=== PATIENT | male | born 1945 | race Caucasian/White ===

== ENCOUNTER → 2018-12-02 | Outpatient (REF) | payer MEDICARE | LOC: M SFHCLERA 12:41 | PROVIDERS: ATTEND Physician Assistant | DX: J02.9 Acute pharyngitis, unspecified (principal) ==

== ENCOUNTER → 2019-03-31 | Outpatient (REF) | payer MEDICARE ==
[2019-03-31 19:51] LABS: AMORPHOUS SEDIMENT LARGE (NEGATIVE); APPEARANCE, URINE TURBID (CLEAR); BACTERIA, URINE AUTO 1+ (NEGATIVE); BILIRUBIN, URINE AUTO NEGATIVE (NEGATIVE); BLOOD, URINE BLOOD NEGATIVE (NEGATIVE); COLOR, URINE YELLOW (YELLOW); GLUCOSE, URINE (UA) AUTO NEGATIVE (NEGATIVE); KETONE, URINE AUTO TRACE mg/dL (NEGATIVE); LEUKOCYTE ESTERASE, URINE AUTO TRACE (NEGATIVE); NITRITE, URINE AUTO NEGATIVE (NEGATIVE); PROTEIN, URINE AUTO NEGATIVE (NEGATIVE); RBC, URINE AUTO 0 /HPF (0-3); SPECIFIC GRAVITY URINE AUTO 1.026 (1.002-1.035); SQUAMOUS EPITHELIAL CELL UR AU 0 /HPF (0-6); WBC, URINE AUTO 5 /HPF (0-3)
== END ==
LOC: M SMT 18:46
PROVIDERS: ATTEND Nurse Practitioner Family
DX: N39.41 Urge incontinence (principal); R97.20 Elevated prostate specific antigen [PSA]
CPT/HCPCS: 36415; 51798; 81001; 87086; G0103; G0463

== ENCOUNTER → 2019-03-31 | Outpatient (CLI) | payer MEDICARE | LOC: M SMT 13:38 | PROVIDERS: ATTEND Nurse Practitioner Family | DX: R97.20 Elevated prostate specific antigen [PSA] (principal) | CPT/HCPCS: 36415; G0103 ==

== ENCOUNTER → 2019-06-16 | Outpatient (CLI) | payer MEDICARE ==
--- NOTE | 2019-06-16 11:25 | REP ---
Clinical: Chronic pain. Technique: Single AP view of the pelvis. Findings: Osseous structures, joint spaces, and surrounding soft tissues are relatively normal for age. No acute fracture dislocation. No significant overt osteoarthritic degenerative changes. Impression: Age-appropriate pelvic radiograph. Electronically Signed by Owen Lainez MD 06/16/2019 11:17 A
--- NOTE | 2019-06-16 11:27 | REP ---
Clinical: Chronic lower back pain. Technique: AP, lateral, bilateral oblique and coned-down views of the lumbosacral spine. Findings: Alignment and lordosis maintained. Vertebral bodies are intact. No acute fracture / compression injury or subluxation. Endplate sclerosis with minimal disc space narrowing and spurring noted at L5-S1, L4-5, and T11-12. Impression: Relatively age-related degenerative changes. No acute fracture / compression injury or subluxation. Electronically Signed by Owen Lainez MD 06/16/2019 11:18 A
== END ==
LOC: M RAD 10:36
PROVIDERS: ATTEND Chiropractor
DX: M51.36 Other intervertebral disc degeneration, lumbar region (principal); M25.78 Osteophyte, vertebrae

== ENCOUNTER 2020-01-26 08:54 | Emergency (ER) | payer MEDICARE ==
[~2020-01-26] VITALS: Ht 177.8 cm; Wt 82.9 kg
[2020-01-26] MEDS ORDERED: ATOR1TAB19 (09:15)
[2020-01-26] MEDS ORDERED: FINA5TAB2 (09:15)
[2020-01-26] MEDS ORDERED: OMEP-218 (09:15)
[2020-01-26 09:39] LABS: BASO % 0.4 % (0.0-1.0); EOS # 0.4 10^3/uL (0.0-0.5); EOS % 5.3 % (0.0-3.0); HEMATOCRIT 43.6 % (42.0-52.0); HEMOGLOBIN 14.9 g/dl (13.5-17.5); LYMPH # 1.5 10^3/uL (1.5-5.0); LYMPH % 19.9 % (24.0-44.0); MEAN CORPUSCULAR HGB CONC 34.2 g/dl (32.0-36.5); MEAN CORPUSCULAR VOLUME 99.5 fl (80.0-96.0); MONO # 0.5 10^3/uL (0.0-0.8); MONO % 6.9 % (0.0-5.0); NEUTROPHILS # 5.1 10^3/uL (1.5-8.5); NEUTROPHILS % 67.2 % (36.0-66.0); PLATELET COUNT, AUTOMATED 161 10^3/uL (150-450); RED BLOOD COUNT 4.38 10^6/uL (4.30-6.10); WHITE BLOOD COUNT 7.6 10^3/uL (4.0-10.0)
[2020-01-26 09:50] LABS: INR 1.09; PROTHROMBIN TIME 13.8 SECONDS (11.8-14.0)
[2020-01-26 09:51] LABS: PARTIAL THROMBOPLASTIN TIME 26.7 SECONDS (25.0-38.4)
[2020-01-26] MEDS ORDERED: ISOVUE-370 76% 100ML VIAL As Ordered ONE (10:08)
[2020-01-26 10:17] LABS: ALBUMIN 3.8 GM/DL (3.2-5.2); ALT/SGPT 30 U/L (12-78); BILIRUBIN,DIRECT 0.3 MG/DL (0.0-0.2); BILIRUBIN,TOTAL 0.8 MG/DL (0.2-1.0); BLOOD UREA NITROGEN 21 MG/DL (7-18); CALCIUM LEVEL 8.8 MG/DL (8.8-10.2); CARBON DIOXIDE LEVEL 27 MEQ/L (21-32); CHLORIDE LEVEL 109 MEQ/L (98-107); CK-MB VALUE MASS 1.3 NG/ML (<3.6); CPK CREATINE PHOSPHOKINASE 65 U/L (39-308); CREATININE FOR GFR 0.93 MG/DL (0.70-1.30); FREE T4 1.12 NG/DL (0.76-1.46); GLOMERULAR FILTRATION RATE > 60.0 (>42); GLUCOSE, FASTING 113 MG/DL (70-100); LIPASE 117 U/L (73-393); POTASSIUM SERUM 4.1 MEQ/L (3.5-5.1); SODIUM LEVEL 143 MEQ/L (136-145); TOTAL PROTEIN 7.6 GM/DL (6.4-8.2); TROPONIN I < 0.02 NG/ML (< 0.10)
[2020-01-26 11:01] VITALS: BP 149/79
--- NOTE | 2020-01-26 11:01 | REP ---
CHEST, SINGLE VIEW: There is no evidence of acute infiltrate. No pleural effusion is seen. The heart is normal in size. The mediastinal silhouette is unremarkable. The visualized osseous structures are intact. IMPRESSION: No acute pulmonary disease. Electronically Signed by Timothy Guerin MD 01/26/2020 11:29 A
[2020-01-26] MEDS ORDERED: KETO10TAB PO (11:12)
--- NOTE | 2020-01-26 12:32 | REP ---
CT ANGIOGRAM CHEST: TECHNIQUE: Axial contrast-enhanced images from the thoracic inlet to the upper abdomen using 100 mL Isovue-370 intravenous contrast material with multiplanar reformations. There is no evidence of thoracic aortic aneurysm or dissection. There is mild atherosclerotic calcification. There is no evidence of pulmonary embolism. Heart is normal in size. There is no mediastinal, hilar or chest wall lymphadenopathy. There is no pleural or pericardial effusion. The lungs are free of infiltrate or suspicious nodular opacity. There are degenerative changes of the spine. IMPRESSION: No evidence of aneurysm or dissection of the thoracic aorta. Electronically Signed by Timothy Guerin MD 01/26/2020 03:31 P
--- NOTE | 2020-01-26 12:43 | REP ---
CT ABDOMEN AND PELVIS WITH IV CONTRAST: A 7 mm hypodense nodule is seen in the left lobe of the liver probably representing a small cyst or hemangioma. Gallbladder is grossly unremarkable with no evidence of biliary dilatation. The spleen is normal in size. Adrenal glands are normal. Pancreas demonstrates no mass. There is a small hypodense nodule in the lower pole of the right kidney likely representing a small cyst. Three hypodensities in the left kidney also likely represent cysts. The largest is in the upper pole 2.4 cm in diameter. There is no hydronephrosis bilaterally. There is a fusiform aneurysmal dilatation of the distal abdominal aorta below the level of the renal arteries containing a moderate amount of intraluminal plaque/thrombus. Maximum AP diameter is 3.9 cm. There is no evidence of dissection or rupture. There is no adenopathy. There is no free air or free fluid. There is no bowel wall thickening. There is mild sigmoid diverticulosis without evidence of acute diverticulitis. There are several diverticula also seen of the left colon. The prostate is enlarged. Urinary bladder is mildly distended and grossly unremarkable. There are degenerative changes of the spine. IMPRESSION: Fusiform aneurysm distal abdominal aorta maximum AP diameter of 3.9 cm. No evidence of dissection or rupture. Electronically Signed by Timothy Guerin MD 01/26/2020 03:31 P
--- NOTE | 2020-01-27 07:59 | ECGEPIP ---
[facility] - ED Test Date: 2020-01-26 Pat Name: GLEN GUEVARA Department: Room: - Gender: Male [employer] Supervisor: MELISSA : 1945 Requested By: LILI Delgado Order Number: [id number] Reading MD: Eran Cottrell Measurements Intervals [place] Rate: 65 P: 87 MT: 184 QRS: -54 QRSD: 140 T: 82 QT: 454 QTc: 473 Interpretive Statements SINUS RHYTHM RIGHT BUNDLE BRANCH BLOCK LEFT ANTERIOR FASCICULAR BLOCK PROBABLE SEPTAL MYOCARDIAL INFARCTION, OF INDETERMINATE AGE NO PRIORS FOR COMPARISON Electronically Signed on 01-27-2020 7:58:46 EDT by Eran Cottrell
== END 2020-01-26 11:39 | disposition home or self-care (01) ==
LOC: M ED 08:54
DX: R07.9 Chest pain, unspecified (principal); I45.10 Unspecified right bundle-branch block; I71.4 Abdominal aortic aneurysm, without rupture; E78.5 Hyperlipidemia, unspecified; K22.70 Barrett's esophagus without dysplasia; K21.9 Gastro-esophageal reflux disease without esophagitis; Z79.899 Other long term (current) drug therapy; Z87.891 Personal history of nicotine dependence
CPT/HCPCS: 71045; 71275; 74174; 80047; 80048; 80076; 82550; 82553; 83690; 84439; 84443; 84484; 85025; 85610; 85730; 93005; 93041; 94760; 99285; Q9967

== ENCOUNTER → 2020-02-09 | Outpatient (CLI) | payer MEDICARE ==
[~2020-02-09] MED LIST: ASPI1CHW3 PO; ATOR1TAB19; FINA5TAB2; KETO10TAB PO; OMEP-218
--- NOTE | 2020-02-09 08:59 | REP ---
Clinical: Follow-up abdominal aortic aneurysm. Technique: Real time laura scale ultrasound examination using curved array transducer. Correlation: CT dated 01/26/2020 Findings: Moderate to significant atherosclerotic disease noted. Infrarenal abdominal aortic aneurysm measures approximately 4.4 x 4.8 cm diameter and 6 cm in craniocaudal length originating 4 cm below the level of the renal arteries and tapering to normal above the bifurcation to iliac arteries. Proximal aorta 2.6 x 3.0 cm. Mid aorta (renal artery level) 2.4 x 2.2 cm. Mid aorta 2.8 x 2.7 cm. Distal aorta 4.4 x 4.8 cm. Right common iliac artery 1.0 cm maximal diameter. Left common iliac artery 0.9 cm maximal diameter. Impression: 1. Moderate infrarenal abdominal aortic aneurysm measuring 4.8 cm maximal diameter. Associated atherosclerotic disease noted. Electronically Signed by Owen Lainez MD 02/09/2020 08:50 A
== END ==
LOC: M RAD 06:56
PROVIDERS: ATTEND Nurse Practitioner Family
DX: I71.4 Abdominal aortic aneurysm, without rupture (principal)

== ENCOUNTER → 2020-04-08 | Outpatient (CLI) | payer MEDICARE | LOC: M LABSMTC 11:02 | PROVIDERS: ATTEND Anesthesiology | DX: Z01.812 Encounter for preprocedural laboratory examination (principal); Z20.828 Contact with and (suspected) exposure to other viral communicable diseases | CPT/HCPCS: C9803; U0003 ==

== ENCOUNTER 2020-04-13 08:07 | Day surgery (SDC) | payer MEDICARE ==
[~2020-04-13] VITALS: Ht 177.8 cm; Wt 80.3 kg
[~2020-04-13 08:07] MED LIST changes: +NS 1,000 ML IV ONE
[2020-04-13] MEDS ORDERED: LIDOCAINE 2% 100MG/5ML SDV (FOR ANES.) As Ordered ONE (09:29)
[2020-04-13] MEDS ORDERED: propofoL 200 MG/20 ML VIAL As Ordered ONE ×2 (09:29→09:58)
--- NOTE | 2020-04-13 10:22 | ROOR ---
Patient Name: Terrance Louise Procedure Date: 04/13/2020 9:25 AM Date of : 1945 Age: 74 Room: [facility] Gender: Male Note Status: Finalized Procedure: Upper GI endoscopy Indications: Follow-up of Sorto's esophagus Providers: Alex Richard MD Referring MD: Brendan PINEDA MD Requesting Provider: Medicines: Monitored Anesthesia Care Complications: No immediate complications. Procedure: Pre-Anesthesia Assessment: - Prior to the procedure, a History and Physical was performed, and patient medications and allergies were reviewed. The patient is competent. The risks and benefits of the procedure and the sedation options and risks were discussed with the patient. All questions were answered and informed consent was obtained. Patient identification and proposed procedure were verified by the physician, the nurse and the anesthesiologist in the procedure room. Mental Status Examination: alert and oriented. Airway Examination: normal oropharyngeal airway and neck mobility. Respiratory Examination: clear to auscultation. CV Examination: normal. Prophylactic Antibiotics: The patient does not require prophylactic antibiotics. Prior Anticoagulants: The patient has taken no previous anticoagulant or antiplatelet agents. ASA Grade Assessment: III - A patient with severe systemic disease. After reviewing the risks and benefits, the patient was deemed in satisfactory condition to undergo the procedure. The anesthesia plan was to use monitored anesthesia care (MAC). Immediately prior to administration of medications, the patient was re-assessed for adequacy to receive sedatives. The heart rate, respiratory rate, oxygen saturations, blood pressure, adequacy of pulmonary ventilation, and response to care were monitored throughout the procedure. The physical status of the patient was re-assessed after the procedure. The Endoscope was introduced through the mouth, and advanced to the second part of duodenum. The upper GI endoscopy was accomplished without difficulty. The patient tolerated the procedure well. Findings: Two tongues of salmon-colored mucosa were present from 42 to 44 cm. No other visible abnormalities were present. The maximum longitudinal extent of these esophageal mucosal changes was 2 cm in length. Biopsies were taken with a cold forceps for histology. Verification of patient identification for the specimen was done by the physician and nurse using the patient's name, date and medical record number. The Z-line was found 44 cm from the incisors. Scattered moderate inflammation characterized by erythema, friability and granularity was found in the stomach. Biopsies were taken with a cold forceps for Helicobacter pylori testing. No gross lesions were noted in the duodenal bulb, in the second portion of the duodenum and in the area of the papilla. Impression: - [place]-colored mucosa suggestive of short-segment Sorto's esophagus. Biopsied. - Z-line, 44 cm from the incisors. - Gastritis. Biopsied. - No gross lesions in the duodenal bulb, in the second portion of the duodenum and in the area of the papilla. Recommendation: - Patient has a contact number available for emergencies. The signs and symptoms of potential delayed complications were discussed with the patient. Return to normal activities tomorrow. Written discharge instructions were provided to the patient. - High fiber diet. - Continue present medications. - Await pathology results. - Follow an antireflux regimen. - Repeat upper endoscopy in 3 years for surveillance of Sorto's esophagus. - Telephone GI clinic for pathology results in 2 weeks. - Return to primary care physician. Alex Richard MD Alex Richard MD 04/13/2020 10:21:51 AM Electronically signed by Alex Richard MD Number of Addenda: 0 Note Initiated On: 04/13/2020 9:25 AM Estimated Blood Loss: Estimated blood loss was minimal.
[2020-04-13 10:35] VITALS: BP 112/55
--- NOTE | 2020-04-13 10:38 | ROOR ---
Patient Name: Terrance Louise Procedure Date: 04/13/2020 9:26 AM Date of : 1945 Age: 74 Room: [facility] Gender: Male Note Status: Finalized Procedure: Colonoscopy Indications: High risk colon cancer surveillance: Personal history of colonic polyps Providers: Alex Richard MD Referring MD: Brendan PINEDA MD Requesting Provider: Medicines: Monitored Anesthesia Care Complications: No immediate complications. Procedure: Pre-Anesthesia Assessment: - Prior to the procedure, a History and Physical was performed, and patient medications and allergies were reviewed. The patient is competent. The risks and benefits of the procedure and the sedation options and risks were discussed with the patient. All questions were answered and informed consent was obtained. Patient identification and proposed procedure were verified by the physician, the nurse and the anesthesiologist in the procedure room. Mental Status Examination: alert and oriented. Airway Examination: normal oropharyngeal airway and neck mobility. Respiratory Examination: clear to auscultation. CV Examination: normal. Prophylactic Antibiotics: The patient does not require prophylactic antibiotics. Prior Anticoagulants: The patient has taken no previous anticoagulant or antiplatelet agents. ASA Grade Assessment: II - A patient with mild systemic disease. After reviewing the risks and benefits, the patient was deemed in satisfactory condition to undergo the procedure. The anesthesia plan was to use monitored anesthesia care (MAC). Immediately prior to administration of medications, the patient was re-assessed for adequacy to receive sedatives. The heart rate, respiratory rate, oxygen saturations, blood pressure, adequacy of pulmonary ventilation, and response to care were monitored throughout the procedure. The physical status of the patient was re-assessed after the procedure. The Colonoscope was introduced through the anus and advanced to the terminal ileum, with identification of the appendiceal orifice and IC valve. The colonoscopy was performed without difficulty. The patient tolerated the procedure well. The quality of the bowel preparation was good. The terminal ileum, ileocecal valve, appendiceal orifice, and rectum were photographed. Scope insertion time was 3 minutes. Scope withdrawal time was 9 minutes. The total duration of the procedure was 12 minutes. Findings: The perianal and digital rectal examinations were normal. The terminal ileum appeared normal. Two sessile polyps were found in the transverse colon and ascending colon. The polyps were 6 to 8 mm in size. These polyps were removed with a cold snare. Resection and retrieval were complete. Verification of patient identification for the specimen was done by the physician and nurse using the patient's name, date and medical record number. Estimated blood loss was minimal. Multiple medium-mouthed diverticula were found in the sigmoid colon and ascending colon. There was no evidence of diverticular bleeding. Non-bleeding external and internal hemorrhoids were found during retroflexion. The hemorrhoids were medium-sized. Impression: - The examined portion of the ileum was normal. - Two 6 to 8 mm polyps in the transverse colon and in the ascending colon, removed with a cold snare. Resected and retrieved. - Moderate diverticulosis in the sigmoid colon and in the ascending colon. There was no evidence of diverticular bleeding. - Non-bleeding external and internal hemorrhoids. Recommendation: - Patient has a contact number available for emergencies. The signs and symptoms of potential delayed complications were discussed with the patient. Return to normal activities tomorrow. Written discharge instructions were provided to the patient. - High fiber diet. - Continue present medications. - Use fiber, for example Citrucel, Fibercon, Konsyl or Metamucil. - Await pathology results. - Repeat colonoscopy in 5 years for surveillance based on pathology results. - Telephone GI clinic for pathology results in 2 weeks. - Return to primary care physician. Alex Richard MD Alex Richard MD 04/13/2020 10:38:10 AM Electronically signed by Alex Richard MD Number of Addenda: 0 Note Initiated On: 04/13/2020 9:26 AM Estimated Blood Loss: Estimated blood loss was minimal.
== END 2020-04-13 10:53 | disposition home or self-care (01) ==
LOC: M OPP 08:07
PROVIDERS: ATTEND Internal Medicine Gastroenterology
DX: Z12.11 Encounter for screening for malignant neoplasm of colon (principal); Z86.010 Personal history of colon polyps; D12.6 Benign neoplasm of colon, unspecified; K57.30 Diverticulosis of large intestine without perforation or abscess without bleeding; K64.8 Other hemorrhoids; K22.70 Barrett's esophagus without dysplasia; K29.70 Gastritis, unspecified, without bleeding; Z79.82 Long term (current) use of aspirin; Z79.899 Other long term (current) drug therapy; I10 Essential (primary) hypertension

== ENCOUNTER → 2020-08-31 | Outpatient (CLI) | payer MEDICARE ==
[~2020-08-31] MED LIST changes: -NS 1,000 ML IV ONE
== END ==
LOC: M LAB 11:39
PROVIDERS: ATTEND Nurse Practitioner Family
DX: R97.20 Elevated prostate specific antigen [PSA] (principal)

== ENCOUNTER → 2020-09-20 | Outpatient (CLI) | payer MEDICARE ==
--- NOTE | 2020-09-20 09:12 | REP ---
INDICATION: ANEURYSM COMPARISON: 02/09/2020 TECHNIQUE: Real time laura scale ultrasound examination using curved array transducer. FINDINGS: Partially calcified atherosclerotic changes to the aorta noted. Infrarenal abdominal aortic aneurysm measures 4.5 x 5.1 cm diameter (previously measuring 4.8 x 4.4 cm diameter) and approximately 7.7 cm in length originating below the level of the renal arteries and tapering to normal before bifurcation to iliac arteries. Proximal aorta: 2.9 x 3.1 cm Aorta at renal arteries: 2.2 x 2.7 cm Mid aorta: 2.7 x 3.6 cm Distal aorta: 4.5 x 5.1 cm Right common iliac artery: 1.1 x 1.1 cm Left common iliac artery: 1.0 x 1.1 cm IMPRESSION: Infrarenal abdominal aortic aneurysm appears mildly increased in diameter as compared with prior examination. <Electronically signed by Owen Lainez > 09/20/20 [id number]
== END ==
LOC: M RAD 07:43
PROVIDERS: ATTEND Family Medicine Addiction Medicine
DX: I71.4 Abdominal aortic aneurysm, without rupture (principal)

== ENCOUNTER → 2021-04-08 | Outpatient (CLI) | payer MEDICARE ==
--- NOTE | 2021-04-08 09:50 | REP ---
INDICATION: AAA. COMPARISON: 09/20/2020. TECHNIQUE: Real-time sonographic evaluation of the abdominal aorta performed. FINDINGS: The previously noted distal abdominal aortic aneurysm has not significantly changed compared to the prior study, measuring approximately 4.6 x 5.2 cm and extending for a length of approximately 7.6 cm. There is moderate intraluminal plaque. There is ectasia of the common iliac arteries right greater than left. Maximum AP diameter of abdominal aorta: Proximal (at diaphragm):3.0 cm. At renal artery level: Not visualized Mid abdominal aorta:2.7 cm. Distal abdominal aorta (prebifurcation): 4.6 cm. Maximum AP diameter common iliac arteries: Right: 14 mm. Left: 11mm. IMPRESSION: Stable aneurysmal dilatation of distal abdominal aorta as discussed above. <Electronically signed by Timothy Guerin > 04/08/21 0919
== END ==
LOC: M RAD 08:22
PROVIDERS: ATTEND Family Medicine Addiction Medicine
DX: I71.4 Abdominal aortic aneurysm, without rupture (principal)

== ENCOUNTER → 2021-05-30 | Outpatient (CLI) | payer MEDICARE ==
[2021-05-30 10:20] LABS: BLOOD UREA NITROGEN 24 MG/DL (7-18); CREATININE FOR GFR 0.86 MG/DL (0.70-1.30); GLOMERULAR FILTRATION RATE > 60.0 (>42)
== END ==
LOC: M LAB 09:26
PROVIDERS: ATTEND Surgery Vascular Surgery
DX: I71.4 Abdominal aortic aneurysm, without rupture (principal)

== ENCOUNTER → 2021-06-06 | Outpatient (CLI) | payer MEDICARE ==
[~2021-06-06] MED LIST changes: +ISOVUE-370 76% 100ML VIAL As Ordered ONE
--- NOTE | 2021-06-06 16:04 | REP ---
INDICATION: ATHEROSCLEROSIS, ANEURYSM OF LOWER EXTRE, AAA COMPARISON: 01/26/2020 TECHNIQUE: Axial contrast enhanced images from the thoracic inlet to the upper abdomen using angiographic technique with multiplanar re-formations. 100 ml Isovue 370 intravenous contrast material administered without complication. This CT examination was performed using the following dose reduction techniques: Automated exposure control, adjustment of mA and/or kv according to the patient's size, and use of iterative reconstruction technique. FINDINGS: Thoracic aorta is normal in appearance and without aneurysm or dissection. Pulmonary vasculature is normal and without evidence for pulmonary embolus. No cardiomegaly or pericardial effusion. Early atherosclerotic changes to the coronary arteries cannot be excluded. The bilateral lung martino are well aerated and without acute consolidation or effusion. No obvious nodule or mass lesion identified. No pneumothorax. Tracheobronchial tree is patent. No axillary, hilar, or mediastinal adenopathy noted. Surrounding musculoskeletal structures demonstrate age-related changes without acute osseous abnormality. IMPRESSION: 1. Normal appearance of the thoracic aorta without aneurysm or dissection. 2. No acute mediastinal or pleuroparenchymal process appreciated. <Electronically signed by Owen Lainez > 06/06/21 1600
--- NOTE | 2021-06-06 16:12 | REP ---
INDICATION: ATHEROSCLEROSIS, ANEURYSM OF LOWER EXTRE, AAA COMPARISON: 01/26/2020 TECHNIQUE: Axial contrast-enhanced images from the lung bases through the pubic symphysis using aortic angiographic technique with multiplanar reformations. This CT examination was performed using the following dose reduction techniques: Automated exposure control, adjustment of mA and/or kv according to the patient's size, and use of iterative reconstruction technique. FINDINGS: Partially thrombosed infrarenal abdominal aortic aneurysm measures approximately 4.5 x 4.1 cm maximal diameter and roughly 5.5 cm craniocaudal length originating 5 cm below the renal arteries and tapering to relatively normal caliber measuring 2.1 cm diameter at the level of the bifurcation to common iliac arteries. No evidence for aortic dissection or periaortic stranding/fluid. Liver, spleen, pancreas, gallbladder, bilateral adrenal glands are relatively normal by arterial evaluation. Kidneys demonstrate stable age-related cortical atrophy and few bilateral hypodensities suggesting benign cysts. The enteric system is without obstruction or acute inflammatory process. Normal terminal ileum and appendix are identified in the right lower quadrant. Sigmoid diverticula noted without acute diverticulitis. Pelvis demonstrates enlarged prostate gland measuring 5 cm maximal diameter with mass effect on the base of the bladder and small fat containing right inguinal hernia. No ascites. No free air. No significant adenopathy. Osteopenia and degenerative changes to the musculoskeletal structures noted. IMPRESSION: Stable infrarenal abdominal aortic aneurysm as described above. Renal hypodensities again noted and consistent with benign renal cysts. Sigmoid diverticula without acute diverticulitis. Enlarged prostate gland with mass effect on the base of the bladder. <Electronically signed by Owen Lainez > 06/06/21 [id number]
--- NOTE | 2021-06-06 17:13 | REP ---
INDICATION: ATHEROSCLEROSIS, ANEURYSM OF LOWER EXTRE, AAA COMPARISON: None TECHNIQUE: Real time laura scale and color Doppler evaluation of the bilateral lower extremity arterial vasculature using linear high frequency transducer. FINDINGS: Right lower extremity demonstrates mild to moderate atheromatous plaquing with predominately biphasic arterial wave patterns and normal velocities. No evidence for focal stenosis or occlusion identified. RANJIT: 1.1 Left lower extremity demonstrates mild to moderate atheromatous plaquing with triphasic and predominately biphasic arterial wave patterns. Focal 2:1 stenosis in the mid femoral artery is appreciated without further stenosis or occlusion identified. 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 Focal area of stenosis in the left mid superficial femoral artery. <Electronically signed by Owen Lainez > 06/06/21 [id number]
== END ==
LOC: M RAD 14:57
PROVIDERS: ATTEND Surgery Vascular Surgery
DX: I71.4 Abdominal aortic aneurysm, without rupture (principal); I72.4 Aneurysm of artery of lower extremity; I70.213 Atherosclerosis of native arteries of extremities with intermittent claudication, bilateral legs; K57.30 Diverticulosis of large intestine without perforation or abscess without bleeding; N40.0 Benign prostatic hyperplasia without lower urinary tract symptoms
CPT/HCPCS: 71275; 74174; 93925; Q9967

== ENCOUNTER → 2021-06-28 | Outpatient (REF) | payer MEDICARE ==
[~2021-06-28] MED LIST changes: -ISOVUE-370 76% 100ML VIAL As Ordered ONE; +OMEP-173; -OMEP-218
== END ==
LOC: M LAB REF 15:59
PROVIDERS: ATTEND Dermatology
DX: L90.5 Scar conditions and fibrosis of skin (principal)
CPT/HCPCS: 11602; 12032; 88305; G0463

== ENCOUNTER → 2021-12-15 | Outpatient (CLI) | payer MEDICARE | LOC: M WHC 07:29 | PROVIDERS: ATTEND Family Medicine Addiction Medicine | DX: I71.4 Abdominal aortic aneurysm, without rupture (principal) ==

== ENCOUNTER → 2022-05-08 | Outpatient (CLI) | payer MEDICARE | LOC: M RAD 08:53 | PROVIDERS: ATTEND Family Medicine Addiction Medicine | DX: I71.43 Infrarenal abdominal aortic aneurysm, without rupture (principal) ==

== ENCOUNTER → 2022-07-06 | Outpatient (CLI) | payer MEDICARE ==
[~2022-07-06] MED LIST changes: +ISOVUE-370 76% 100ML VIAL As Ordered ONE
[2022-07-06 10:54] LABS: BASO % 0.4 % (0.0-1.0); EOS # 0.4 10^3/uL (0.0-0.5); EOS % 5.3 % (0.0-3.0); HEMATOCRIT 42.5 % (42.0-52.0); HEMOGLOBIN 14.5 g/dl (13.5-17.5); LYMPH # 1.3 10^3/uL (1.5-5.0); LYMPH % 19.6 % (24.0-44.0); MEAN CORPUSCULAR HGB CONC 34.1 g/dl (32.0-36.5); MEAN CORPUSCULAR VOLUME 99.8 fl (80.0-96.0); MONO # 0.6 10^3/uL (0.0-0.8); MONO % 8.3 % (2.0-8.0); NEUTROPHILS # 4.5 10^3/uL (1.5-8.5); NEUTROPHILS % 66.1 % (36.0-66.0); PLATELET COUNT, AUTOMATED 156 10^3/uL (150-450); RED BLOOD COUNT 4.26 10^6/uL (4.30-6.10); WHITE BLOOD COUNT 6.7 10^3/uL (4.0-10.0)
[2022-07-06 11:18] LABS: BLOOD UREA NITROGEN 16 MG/DL (9-23); CREATININE FOR GFR 0.93 MG/DL (0.70-1.30); GLOMERULAR FILTRATION RATE > 60.0 (>42)
== END ==
LOC: M RAD 09:30
PROVIDERS: ATTEND Internal Medicine Gastroenterology
DX: I71.40 Abdominal aortic aneurysm, without rupture, unspecified (principal); R10.84 Generalized abdominal pain; N28.1 Cyst of kidney, acquired; M47.9 Spondylosis, unspecified; I74.09 Other arterial embolism and thrombosis of abdominal aorta
CPT/HCPCS: 74174; 82565; 84520; 85025; Q9967

== ENCOUNTER → 2023-01-19 | Outpatient (CLI) | payer MEDICARE ==
[~2023-01-19] MED LIST changes: +ASPI-655 PO; -ASPI1CHW3 PO; -ISOVUE-370 76% 100ML VIAL As Ordered ONE
== END ==
LOC: M PLALAB 10:13
PROVIDERS: ATTEND Physician Assistant
DX: R97.20 Elevated prostate specific antigen [PSA] (principal)

== ENCOUNTER 2023-05-08 09:41 | Day surgery (SDC) | payer MEDICARE ==
[~2023-05-08] VITALS: Ht 177.8 cm; Wt 82.3 kg
[~2023-05-08 09:41] MED LIST changes: +ALIG4CAP PO; +ATOR1TAB19 PO; +CEFUROXIME 1MG/0.1ML INTRACAMERAL INJ As Ordered ONE; +CYCLOPENTOLATE 1% OPHTH SOLN 2ML BTL OS SCH; +ECOT81TA5 PO; +FINA5TAB2 PO; +LIDOCAINE 1% SDV 5ML VIAL As Ordered ONE; +MIDAZOLAM INJ 2MG/2ML VIAL As Ordered ONE; +OFLOXACIN 0.3 % (OCUFLOX) OPTH SOL 5ML OS SCH; +OMEP-173 PO; +PHENYLEPHRINE 2.5% OPHTH SOL 2ML OS SCH; +PROPARACAINE 0.5% OPHTH SOL 15ML OS ONE; +PROVISC 10 MG/ML 0.85ML SYRINGE As Ordered ONE; +TROPICAMIDE 1% OPHTH SOLN 15ML OS SCH; +fentaNYL 100 MCG/2 ML INJECTION As Ordered ONE
[2023-05-08] MEDS ORDERED: BSS IRR 500ML/OMIDRIA 4ML IRR BAG (OR ONLY) As Ordered ONE (10:04)
[2023-05-08] MEDS ORDERED: TRYPAN BLUE 0.06 % 2.25 ML OPHTH SYR (VISIONBLUE) As Ordered ONE (10:49)
[2023-05-08 11:30] VITALS: BP 136/74; TEMP 97.1; O2SAT 97
== END 2023-05-08 11:50 | disposition home or self-care (01) ==
LOC: M SDC 09:41
PROVIDERS: ATTEND Ophthalmology
DX: H25.12 Age-related nuclear cataract, left eye (principal); H40.1120 Primary open-angle glaucoma, left eye, stage unspecified; E78.00 Pure hypercholesterolemia, unspecified; I71.40 Abdominal aortic aneurysm, without rupture, unspecified; K21.9 Gastro-esophageal reflux disease without esophagitis; Z79.899 Other long term (current) drug therapy; Z79.82 Long term (current) use of aspirin
CPT/HCPCS: 65820; 66984; A4649; C1889; J0697; J1097; J2250; J3010; V2632

== ENCOUNTER → 2023-06-05 | Day surgery (SDC) | payer MEDICARE ==
[~2023-06-05] VITALS: Ht 177.8 cm; Wt 80.6 kg
[~2023-06-05] MED LIST changes: +BSS IRR 500ML/OMIDRIA 4ML IRR BAG (OR ONLY) As Ordered ONE; +CYCLOPENTOLATE 1% OPHTH SOLN 2ML BTL OD SCH; -CYCLOPENTOLATE 1% OPHTH SOLN 2ML BTL OS SCH; +OFLOXACIN 0.3 % (OCUFLOX) OPTH SOL 5ML OD SCH; -OFLOXACIN 0.3 % (OCUFLOX) OPTH SOL 5ML OS SCH; +PHENYLEPHRINE 2.5% OPHTH SOL 2ML OD SCH; -PHENYLEPHRINE 2.5% OPHTH SOL 2ML OS SCH; +PROPARACAINE 0.5% OPHTH SOL 15ML OD ONE; -PROPARACAINE 0.5% OPHTH SOL 15ML OS ONE; -PROVISC 10 MG/ML 0.85ML SYRINGE As Ordered ONE; +TROPICAMIDE 1% OPHTH SOLN 15ML OD SCH; -TROPICAMIDE 1% OPHTH SOLN 15ML OS SCH
[2023-06-05 09:48] VITALS: BP 111/57; TEMP 96.4; O2SAT 95
== END | disposition home or self-care (01) ==
LOC: M SDC 07:29
PROVIDERS: ATTEND Ophthalmology
DX: H25.11 Age-related nuclear cataract, right eye (principal); H40.811 Glaucoma with increased episcleral venous pressure, right eye; E78.5 Hyperlipidemia, unspecified; K21.9 Gastro-esophageal reflux disease without esophagitis; I35.8 Other nonrheumatic aortic valve disorders; Z87.891 Personal history of nicotine dependence; Z79.899 Other long term (current) drug therapy
CPT/HCPCS: 65820; 66984; C1889; J0697; J1097; J2250; J3010; V2632

== ENCOUNTER → 2023-11-06 | Outpatient (CLI) | payer MEDICARE ==
[~2023-11-06] MED LIST changes: -BSS IRR 500ML/OMIDRIA 4ML IRR BAG (OR ONLY) As Ordered ONE; -CEFUROXIME 1MG/0.1ML INTRACAMERAL INJ As Ordered ONE; -CYCLOPENTOLATE 1% OPHTH SOLN 2ML BTL OD SCH; -LIDOCAINE 1% SDV 5ML VIAL As Ordered ONE; -MIDAZOLAM INJ 2MG/2ML VIAL As Ordered ONE; -OFLOXACIN 0.3 % (OCUFLOX) OPTH SOL 5ML OD SCH; -PHENYLEPHRINE 2.5% OPHTH SOL 2ML OD SCH; -PROPARACAINE 0.5% OPHTH SOL 15ML OD ONE; -TROPICAMIDE 1% OPHTH SOLN 15ML OD SCH; -fentaNYL 100 MCG/2 ML INJECTION As Ordered ONE
[2023-11-06 09:38] LABS: ALBUMIN 3.2 G/DL (3.2-5.2); ALKALINE PHOSPHATASE 130 U/L (46-116); ALT/SGPT 14 U/L (7.0-40); AST/SGOT 12 U/L (<34); BILIRUBIN,DIRECT < 0.1 MG/DL (<0.4); BILIRUBIN,TOTAL 0.5 MG/DL (0.3-1.2); CHOLESTEROL LEVEL 150 MG/DL (<200); CHOLESTEROL RISK RATIO 3.54 (<5); HDL CHOLESTEROL 42.3 MG/DL (>40); IRON (FE) 80 UG/DL (65-175); LDL CHOLESTEROL 88.1 MG/DL (<100); NON-HDL-C 107.7 MG/DL; PERCENT SATURATION 33.2 % (19.7-50.0); TOTAL IRON BINDING CAPACITY 241 UG/DL (250-425); TOTAL PROTEIN 6.6 G/DL (5.7-8.2); TRIGLYCERIDES LEVEL 98 MG/DL (<150)
[2023-11-06 09:42] LABS: FERRITIN 162.6 NG/ML (10.5-307.3)
[2023-11-08 03:07] LABS: HEPATITIS A IgG TOTAL Negative (Negative); HEPATITIS B CORE ANTIBODY IGG Negative (Negative)
== END ==
LOC: M LAB 08:39
PROVIDERS: ATTEND Internal Medicine Gastroenterology
DX: K59.00 Constipation, unspecified (principal); Z79.899 Other long term (current) drug therapy; Z86.39 Personal history of other endocrine, nutritional and metabolic disease; Z72.89 Other problems related to lifestyle; Z11.59 Encounter for screening for other viral diseases

== ENCOUNTER → 2024-01-18 | Outpatient (CLI) | payer MEDICARE ==
[2024-01-22 17:33] LABS: TESTOSTERONE FREE (DIRECT) 79.4 pg/mL (30.0-135.0)
== END ==
LOC: M PLALAB 08:04
PROVIDERS: ATTEND Physician Assistant
DX: N52.9 Male erectile dysfunction, unspecified (principal); Z87.898 Personal history of other specified conditions; N40.0 Benign prostatic hyperplasia without lower urinary tract symptoms

== ENCOUNTER → 2024-12-05 | Outpatient (REF) | payer MEDICARE ==
[~2024-12-05] MED LIST changes: -ALIG4CAP PO; +ALIG4CAP3 PO
[2024-12-09 17:52] LABS: ANTI-MITOCHONDRIAL ANTIBODY NEGATIVE (NEGATIVE)
[2024-12-10 07:33] LABS: ALKALINE PHOSPHATASE ISO-MACR0 0 % (<=0); ALKALINE PHOSPHATASE ISO-PLAC 0 % (<=0); Alkaline Phosphatase Iso-Bone 40 % (28-66); Alkaline Phosphatase Iso-Intes 9 % (1-24); Alkaline Phosphatase Iso-Liver 51 % (25-69); TOTAL ALK PHOS 144 U/L (35-144)
[2024-12-10 17:02] LABS: ANA SCREEN, IFA POSITIVE (NEGATIVE)
== END ==
LOC: M LAB REF 17:32
PROVIDERS: ATTEND Family Medicine Addiction Medicine
DX: R74.8 Abnormal levels of other serum enzymes (principal)

== ENCOUNTER → 2025-05-22 | Outpatient (CLI) | payer MEDICARE ==
[~2025-05-22] MED LIST changes: -ASPI-655 PO; +ASPI-737 PO
== END ==
LOC: M RAD 11:00
PROVIDERS: ATTEND Family Medicine Addiction Medicine
DX: R05.9 Cough, unspecified (principal); R91.8 Other nonspecific abnormal finding of lung field

== ENCOUNTER → 2025-05-25 | Outpatient (REF) | payer MEDICARE ==
[2025-05-25 16:34] LABS: BASO # 0.0 10^3/uL (0.0-0.2); BASO % 0.3 % (0.0-1.0); EOS # 0.9 10^3/uL (0.0-0.5); EOS % 7.9 % (0.0-3.0); LYMPH # 1.6 10^3/uL (1.5-5.0); LYMPH % 13.4 % (24.0-44.0); MONO # 0.9 10^3/uL (0.0-0.8); MONO % 7.5 % (2.0-8.0); NEUTROPHILS # 8.3 10^3/uL (1.5-8.5); NEUTROPHILS % 70.5 % (36.0-66.0); PLATELET COUNT, AUTOMATED 248 10^3/uL (150-450)
[2025-05-25 16:59] LABS: ALT/SGPT 13.0 U/L (7.0-40); AST/SGOT 14.0 U/L (<34); CALCIUM LEVEL 9.0 MG/DL (8.3-10.6); CARBON DIOXIDE LEVEL 28.0 MMOL/L (20-31); CHLORIDE LEVEL 100.0 MMOL/L (98-107); CREATININE FOR GFR 0.8 MG/DL (0.70-1.30); GLOMERULAR FILTRATION RATE 90.0 (>42); POTASSIUM SERUM 4.4 MMOL/L (3.5-5.1); PSA SCREENING 2.88 NG/ML (< 4.00); SODIUM LEVEL 138.0 MMOL/L (136-145)
[2025-05-25 17:00] LABS: FREE T4 1.16 NG/DL (0.89-1.76)
== END ==
LOC: M LAB REF 16:21
PROVIDERS: ATTEND Family Medicine Addiction Medicine
DX: R63.4 Abnormal weight loss (principal)
CPT/HCPCS: 80053; 84439; 84443; 85025; G0103

== ENCOUNTER → 2025-05-28 | Outpatient (CLI) | payer MEDICARE | LOC: M RAD 16:53 | PROVIDERS: ATTEND Family Medicine Addiction Medicine | DX: R91.1 Solitary pulmonary nodule (principal); R91.8 Other nonspecific abnormal finding of lung field ==

== ENCOUNTER 2025-06-28 16:28 | Inpatient (IN) | payer MEDICARE ==
[~2025-06-28] VITALS: Ht 177.8 cm; Wt 76.2 kg
[2025-06-28 17:08] LABS: BASO # 0.0 10^3/uL (0.0-0.2); BASO % 0.1 % (0.0-1.0); EOS # 1.5 10^3/uL (0.0-0.5); EOS % 7.8 % (0.0-3.0); LYMPH # 1.2 10^3/uL (1.5-5.0); LYMPH % 6.1 % (24.0-44.0); MONO # 1.2 10^3/uL (0.0-0.8); MONO % 6.2 % (2.0-8.0); NEUTROPHILS # 15.5 10^3/uL (1.5-8.5); NEUTROPHILS % 79.2 % (36.0-66.0); PLATELET COUNT, AUTOMATED 152 10^3/uL (150-450)
[2025-06-28 17:30] LABS: KETONE, URINE AUTO RFX NEGATIVE (NEGATIVE); NITRITE, URINE AUTO RFX NEGATIVE (NEGATIVE); RBC, URINE AUTO RFX TNTC /HPF (0-3); SQUAM EPITHELIAL CELL UR AURFX 0 /HPF (0-6)
[2025-06-28 17:31] LABS: LEUKOCYTE ESTERASE UR AUTO RFX TRACE (NEGATIVE); WBC, URINE AUTO RFX 41 /HPF (0-3)
[2025-06-28 17:37] LABS: CK-MB VALUE MASS 2.6 NG/ML (<3.6)
[2025-06-28 17:39] LABS: CPK CREATINE PHOSPHOKINASE 16.0 U/L (46-171); MB/CK RELATIVE INDEX 16.25 (< OR =4)
[2025-06-28 17:42] LABS: FREE T4 1.03 NG/DL (0.89-1.76)
[2025-06-28 18:43] LABS: ALT/SGPT 25.0 U/L (7.0-40); AST/SGOT 12.0 U/L (<34); CALCIUM LEVEL 9.0 MG/DL (8.3-10.6); CARBON DIOXIDE LEVEL 22.0 MMOL/L (20-31); CHLORIDE LEVEL 102.0 MMOL/L (98-107); CREATININE FOR GFR 11.48 MG/DL (0.70-1.30); GLOMERULAR FILTRATION RATE 4.1 (>42); MAGNESIUM LEVEL 3.4 MG/DL (1.8-2.4); POTASSIUM SERUM 6.8 MMOL/L (3.5-5.1); SODIUM LEVEL 134.0 MMOL/L (136-145)
[2025-06-28 18:53] LABS: CK-MB VALUE MASS 2.7 NG/ML (<3.6)
[2025-06-28 18:54] LABS: CPK CREATINE PHOSPHOKINASE 17.0 U/L (46-171); MB/CK RELATIVE INDEX 15.88 (< OR =4)
[2025-06-28] MEDS: CALCIUM CHLORIDE 10% 1 GM/10 ML SYR IV ONE (19:03)
[2025-06-28 19:04] LABS: POTASSIUM SERUM 6.4 MMOL/L (3.5-5.1)
[2025-06-28] MEDS: SODIUM BICARBONATE 8.4% INJ 50ML SYRINGE IV ONE (19:04)
[2025-06-28] MEDS: NS (Normal Saline) 0.9% 1,000 ML IV SCH (19:04)
[2025-06-28] MEDS: DEXTROSE 50% 50 ML SYRINGE IV ONE (19:04)
[2025-06-28] MEDS: PATIROMER SORBITEX CALCIUM 8.4GM POWDER PACKET PO ONE (19:04)
[2025-06-28] MEDS: HumuLIN R (REGULAR) INSULIN (NovoLIN R) **100 U/ML** PER UNIT IV ONE (19:05)
[2025-06-28] MEDS: cefTRIAXone SOD 2 GM in DEXTROSE 5% (D5W) ADV/MINI-BAG 50 ML IV ONE (19:32)
[2025-06-28] MEDS ORDERED: MIRALAX *UNIT DOSE* 17 GM PACKET PO PRN (20:45)
[2025-06-28 21:38] LABS: POTASSIUM RANDOM URINE 28.0 MMOL/L; SODIUM,RANDOM URINE 73.0 MMOL/L
[2025-06-28 21:46] LABS: CALCIUM,RANDOM URINE 7.4 MG/DL
[2025-06-28] MEDS ORDERED: PRED20TA PO (21:47)
[2025-06-28] MEDS ORDERED: MYRB50TA PO (21:47)
[2025-06-28] MEDS ORDERED: TADA20TA PO (21:47)
[2025-06-28] MEDS ORDERED: BIFI1CAP PO (21:47)
[2025-06-28] MEDS ORDERED: MAGN400C PO (21:47)
[2025-06-28] MEDS ORDERED: LUBI24CA PO (21:47)
[2025-06-28] MEDS ORDERED: XALA0.007 OU (21:47)
[2025-06-28] MEDS ORDERED: CEFD1CAP9 PO (21:47)
[2025-06-28] MEDS ORDERED: ONDA-282 SL (21:47)
[2025-06-28] MEDS ORDERED: LINZ290C PO (21:47)
[2025-06-28] MEDS ORDERED: HOME MED LIST COMPLETE! XX SCH (21:50)
[2025-06-28] MEDS: ACETAMINOPHEN 325 MG TAB PO PRN (21:58)
[2025-06-28] MEDS: SENNA 8.6 MG TAB PO SCH (21:58)
[2025-06-28 22:06] LABS: CALCIUM LEVEL 8.8 MG/DL (8.3-10.6); CARBON DIOXIDE LEVEL 26.0 MMOL/L (20-31); CHLORIDE LEVEL 105.0 MMOL/L (98-107); CREATININE FOR GFR 6.67 MG/DL (0.70-1.30); GLOMERULAR FILTRATION RATE 7.9 (>42); POTASSIUM SERUM 5.1 MMOL/L (3.5-5.1); SODIUM LEVEL 141.0 MMOL/L (136-145)
[2025-06-29 07:09] LABS: PLATELET COUNT, AUTOMATED 138 10^3/uL (150-450)
[2025-06-29 07:43] LABS: CALCIUM LEVEL 8.5 MG/DL (8.3-10.6); CARBON DIOXIDE LEVEL 22.0 MMOL/L (20-31); CHLORIDE LEVEL 108.0 MMOL/L (98-107); CREATININE FOR GFR 2.29 MG/DL (0.70-1.30); GLOMERULAR FILTRATION RATE 28.3 (>42); MAGNESIUM LEVEL 1.8 MG/DL (1.8-2.4); POTASSIUM SERUM 5.1 MMOL/L (3.5-5.1); SODIUM LEVEL 142.0 MMOL/L (136-145)
[2025-06-29] MEDS: FINASTERIDE 5 MG TAB PO SCH (09:31)
[2025-06-29] MEDS: ASPIRIN 81 MG ENTERIC TABLET PO SCH (09:31)
[2025-06-29] MEDS: OMEPRAZOLE 20MG CAP PO SCH (09:31)
[2025-06-29] MEDS: cefTRIAXone SOD 1 GM in DEXTROSE 5% (D5W) ADV/MINI-BAG 50 ML IV SCH (09:39)
[2025-06-29] MEDS: HEPARIN SOD 5000 UNITS/ML 1 ML VIAL/SYRINGE SC SCH (09:39)
[2025-06-29] MEDS: MIRALAX *UNIT DOSE* 17 GM PACKET PO SCH (11:38)
[2025-06-29] MEDS: TAMSULOSIN 0.4 MG CAP PO ONE (11:39)
[2025-06-29 15:58] VITALS: BP 133/67; TEMP 98.7; O2SAT 96
[2025-06-29] MEDS: DOCUSATE SODIUM 100 MG CAPSULE PO SCH (16:07)
[2025-06-29] MEDS: BISACODYL 10 MG SUPP PR ONE (16:07)
[2025-06-29] MEDS: ONDANSETRON 4MG ORAL DISINTEGRATING TAB SL PRN (17:38)
[2025-06-29] MEDS: SENNA 8.6 MG TAB PO SCH (20:12)
[2025-06-29] MEDS: MAGNESIUM OXIDE 400 MG TAB PO SCH (20:25)
[2025-06-29 20:26] VITALS: BP 113/59; TEMP 98.5; O2SAT 95
[2025-06-29] MEDS: ATORVASTATIN 10 MG TAB PO SCH (20:26)
[2025-06-29] MEDS: LATANOPROST 0.005% OPHTH SOLN 2.5 ML OU SCH (21:02)
[2025-06-30 03:55] VITALS: BP 117/65; TEMP 98.6; O2SAT 96
[2025-06-30 06:48] LABS: BASO # 0.0 10^3/uL (0.0-0.2); BASO % 0.2 % (0.0-1.0); EOS # 1.0 10^3/uL (0.0-0.5); EOS % 7.9 % (0.0-3.0); LYMPH # 1.0 10^3/uL (1.5-5.0); LYMPH % 7.5 % (24.0-44.0); MONO # 0.8 10^3/uL (0.0-0.8); MONO % 6.2 % (2.0-8.0); NEUTROPHILS # 10.3 10^3/uL (1.5-8.5); NEUTROPHILS % 77.7 % (36.0-66.0); PLATELET COUNT, AUTOMATED 119 10^3/uL (150-450)
[2025-06-30 07:07] LABS: CALCIUM LEVEL 8.3 MG/DL (8.3-10.6); CARBON DIOXIDE LEVEL 22 MMOL/L (20-31); CHLORIDE LEVEL 108 MMOL/L (98-107); CREATININE FOR GFR 0.78 MG/DL (0.70-1.30); GLOMERULAR FILTRATION RATE > 90.0 (>42); POTASSIUM SERUM 4.0 MMOL/L (3.5-5.1); SODIUM LEVEL 140 MMOL/L (136-145)
[2025-06-30] MEDS: TAMSULOSIN 0.4 MG CAP PO SCH (10:07)
[2025-06-30 11:42] VITALS: BP 118/60; TEMP 98.6; O2SAT 95
[2025-06-30] MEDS: ANUSOL HC CREAM 30 GM TOP SCH (13:00)
[2025-06-30] MEDS: ANUSOL HC 25 MG SUPP PR SCH (15:15)
[2025-06-30 19:49] VITALS: BP 124/61; TEMP 98.8; O2SAT 94
[2025-06-30] MEDS: DOCUSATE SODIUM 100 MG CAPSULE PO ONE (21:56)
[2025-06-30] MEDS: CEFDINIR 300 MG CAP PO SCH (21:56)
[2025-07-01 04:18] VITALS: BP 125/66; TEMP 98.1; O2SAT 96
[2025-07-01 05:51] LABS: PLATELET COUNT, AUTOMATED 121 10^3/uL (150-450)
[2025-07-01 06:24] LABS: ALT/SGPT 18 U/L (7.0-40); AST/SGOT 12 U/L (<34); CALCIUM LEVEL 8.3 MG/DL (8.3-10.6); CARBON DIOXIDE LEVEL 23 MMOL/L (20-31); CHLORIDE LEVEL 105 MMOL/L (98-107); CREATININE FOR GFR 0.67 MG/DL (0.70-1.30); GLOMERULAR FILTRATION RATE > 90.0 (>42); POTASSIUM SERUM 3.7 MMOL/L (3.5-5.1); SODIUM LEVEL 138 MMOL/L (136-145)
[2025-07-01] MEDS: DOCUSATE SODIUM 100 MG CAPSULE PO SCH (08:32)
[2025-07-01 12:00] VITALS: BP 109/58; TEMP 98.4; O2SAT 96
[2025-07-01] MEDS ORDERED: COLA100C5 PO (19:11)
[2025-07-01] MEDS ORDERED: TAMS1CAP17 PO (19:11)
[2025-07-01] MEDS ORDERED: SENN18TA PO (19:11)
[2025-07-01] MEDS ORDERED: MIRA33506 PO (19:11)
[2025-07-01 21:23] VITALS: BP 126/54; TEMP 98.5; O2SAT 96
[2025-07-02 04:26] VITALS: BP 118/62; TEMP 98.5; O2SAT 93
[2025-07-02 07:32] LABS: PLATELET COUNT, AUTOMATED 133 10^3/uL (150-450)
[2025-07-02 08:02] LABS: ALT/SGPT 20 U/L (7.0-40); AST/SGOT 11 U/L (<34); CALCIUM LEVEL 8.2 MG/DL (8.3-10.6); CARBON DIOXIDE LEVEL 25 MMOL/L (20-31); CHLORIDE LEVEL 104 MMOL/L (98-107); CREATININE FOR GFR 0.69 MG/DL (0.70-1.30); GLOMERULAR FILTRATION RATE > 90.0 (>42); POTASSIUM SERUM 3.5 MMOL/L (3.5-5.1); SODIUM LEVEL 137 MMOL/L (136-145)
== END 2025-07-02 11:36 | disposition home health service (06) | DRG 683 ==
LOC: EDBD 16:28 → M ED 16:28 → M ED INP 20:44 → M MSPAV 06-29 15:54
PROVIDERS: ADMIT Student in an Organized Health Care Education/Training Program; ATTEND Internal Medicine
DX: N17.9 Acute kidney failure, unspecified (principal); C34.90 Malignant neoplasm of unspecified part of unspecified bronchus or lung; J90 Pleural effusion, not elsewhere classified; N40.0 Benign prostatic hyperplasia without lower urinary tract symptoms; E87.5 Hyperkalemia; I10 Essential (primary) hypertension; K21.9 Gastro-esophageal reflux disease without esophagitis; K22.70 Barrett's esophagus without dysplasia; D69.6 Thrombocytopenia, unspecified; K59.00 Constipation, unspecified; R62.7 Adult failure to thrive; Z87.891 Personal history of nicotine dependence; Z79.899 Other long term (current) drug therapy; Z79.82 Long term (current) use of aspirin